=== PATIENT | male | born 1955 | race Caucasian/White ===

== ENCOUNTER 2022-11-16 10:25 | Outpatient (REF) | payer MEDICAID, SELFPAY ==
[2022-11-16 12:33] LABS: Anion Gap 16 (12-20); Blood Urea Nitrogen 26 mg/dL (9-16); Calcium 9.7 mg/dL (8.4-10.2); Carbon Dioxide 23 mmol/L (22-29); Chloride 102 mmol/L (96-108); Estimated Glomerular Filt Rate > 60; Glucose Random 253 mg/dL (60-115); Potassium 3.9 mmol/L (3.3-5.1); Sodium 137 mmol/L (135-145); TSH reflex Free T4 1.49 uIU/mL (0.32-4.0)
== END 2022-11-16 10:26 | disposition home or self-care (01) ==
LOC: HO.HHCL 10:25
PROVIDERS: Visit Provider Internal Medicine
DX: E11.9 Type 2 diabetes mellitus without complications (principal)
CPT/HCPCS: 36415; 80048; 84443

== ENCOUNTER 2023-07-18 11:10 | Outpatient (REF) | payer MEDICARE, MEDICAID, SELFPAY ==
[2023-07-18 14:07] LABS: Cholesterol 106 mg/dL (<200); HDL Cholesterol 46 mg/dL (>40); LDL Cholesterol Calculated 41 mg/dL (<100); Triglycerides 96 mg/dL (<150)
[2023-07-18 14:10] LABS: Creatinine Urine 129.49 mg/dL; Microalbum/Creatinine Ratio Ur 7.7 ug/mg cr (<30)
[2023-07-19 08:14] LABS: ~HepC Num1 0.13 S/CO (0.00-0.79); ~Hepatitis C Antibody Nonreactive (Nonreactive)
== END 2023-07-18 11:11 | disposition home or self-care (01) ==
LOC: HO.HHCL 11:10
PROVIDERS: Visit Provider General Practice
DX: E11.42 Type 2 diabetes mellitus with diabetic polyneuropathy (principal)
CPT/HCPCS: 36415; 80061; 82043; 82570; 86803

== ENCOUNTER 2024-07-30 09:35 | Outpatient (REF) | payer MEDICARE, MEDICAID, SELFPAY ==
--- OUTSIDE RECORDS SUMMARY | 2024-07-30 10:40 | XMS_ITS | Encounter Summary ---
Author Organization [employer] Address 75 [facility] 7t [place] [address] Care Team Providers Care Volunteer Services Specialist Name Role Phone Amada Hwang MD Primary Care Provider [phone] Daniela Chavez PharmD Unavailable [phone] Reason for Visit * Reason Comments Med Refill Encounter Details Date Type Department Care Team (Late st Contact Info) Description 04/14/2023 Refill [facility] MEDICINE [address] [place], [place] [phone] Santa Kay MD 230 [place], [place] [phone] Type 2 diabetes mellitus without complication, without long-term current use of insulin ([facility]) Social History Tobacco Use Types Packs/Day Years Used Date Smoking Tobacco: Never Smokeless Tobacco: Never Alcohol Use Standard Drinks/Week Comments Never 0 (1 standard drink = 0.6 oz pur e alcohol) Housing Stability Answer Date Recorded What is your housing situation today? I have fani montiel 02/16/[address] you li ve. Do you have problems with any of the following? None of the above 02/16/2023 Food Insecurity Answer Date Recorded Within the past 12 months, y ou worried that your food would run out before you got money to buy more: Never True 02/16/2023 Within the past 12 months,th e food you bought just didn't last and you didn't have enough money to get more: Never True 12/2022 Transportation Answer Date Recorded In the past 12 months, has l ack of transportation kept you from medical appts, meetings, work or from getting things needed for daily living? Yes, it has kept me from medical appointments or getting medications. 01/19/2023 Utilities Answer Date Recorded In the past 12 months, has t he electric, gas, oil or water company threatened to shut off services in your home? No 02/16/2023 Depression Answer Date Recorded Patient Health Questionnaire-2 Score 0 06/29/2022 Sex and Gender Information Value Date Recorded Sex Assigned at Male 02/07/2022 10:16 AM EDT Legal Sex Male 10:16 AM EDT Gender Identity Male 02/07/2022 10:16 AM EDT Sexual Orientation Straight 02/07/2022 10 :16 AM EDT documented as of this encounter Plan of Treatment Upcoming Encounters Date Type Department Care Team (Late st Contact Info) Description 07/30/2024 1:30 PM EDT Medication Management [facility] MEDICINE [address] [place] [address] 08/22/2024 1:00 PM EDT Medication Management [facility] MEDICINE [address] [place] [address] Daniela Chavez PharmD 230 [place] [address] 11/12/2024 1:00 PM EDT Office Visit [facility] OPTOMETRY [address] [place] [address] Cheikh, Rosanna, OD 230 [place] [address] documented as of this encounter Visit Diagnoses Diagnosis Type 2 diabetes mellitus without complication, without long-term current use of insulin ([facility]) documented in this encounter Care Teams Volunteer Services Specialist Relationship Specialty Start Date End Date Amada Hwang MD [address] [place] [address] PCP - General Family Medicine 06/09/22 Daniela Chavez PharmD [address] [place] [address] Pharmacist Internal Medicine 08/03/23 documented as of this encounter
--- OUTSIDE RECORDS SUMMARY | 2024-07-30 10:40 | XMS_ITS | Encounter Summary ---
Author Organization [employer] Address 75 [facility] 7t [place] [address] Care Team Providers Care Pbx Installer Name Role Phone KelliPing BRANDON Primary Care Provider Amada Albert MD Primary Care Provider [phone] Daniela Chavez PharmD Unavailable [phone] Encounter Details Date Type Department Care Team (Late st Contact Info) Description 04/29/2022 Orders Only [facility] MEDICINE [address] [place] [address] [phone] Jeanine Monson LPN Social History Tobacco Use Types Packs/Day Years Used Date Smoking Tobacco: Never Assessed Sex and Gender Information Value Date Recorded Sex Assigned at Male 02/07/2022 10:16 AM EDT Legal Sex Male 10:16 AM EDT Gender Identity Male 02/07/2022 10:16 AM EDT Sexual Orientation Straight 02/07/2022 10 :16 AM EDT COVID-19 Exposure Response Date Recorded In the last 10 days, have yo u been in contact with someone who was confirmed or suspected to have Coronavirus/COVID-19? Unable to assess 03/31/2022 1: 04 PM EST documented as of this encounter Plan of Treatment Upcoming Encounters Date Type Department Care Team (Late st Contact Info) Description 07/30/2024 1:30 PM EDT Medication Management [facility] MEDICINE [address] [place] [address] [phone] 08/22/2024 1:00 PM EDT Medication Management [facility] MEDICINE [address] [place] [address] [phone] PuiaCampbellDaniela, PharmD 230 [place], [place] [phone] 11/12/2024 1:00 PM EDT Office Visit [facility] OPTOMETRY [address] [place] [address] Rosanna Salamanca, OD 230 [place] [address] documented as of this encounter Visit Diagnoses Not on filedocumented in this encounter Care Teams Pbx Installer Relationship Specialty Start Date End Date Ping Pereira FNP PCP - General Family Medicine 03/31/22 06/08/22 Amada Hwang MD 230 [place] [address] PCP - General Family Medicine 06/09/22 Daniela Chavez PharmD 230 [place] [address] Pharmacist Internal Medicine 08/03/23 documented as of this encounter
--- OUTSIDE RECORDS SUMMARY | 2024-07-30 10:40 | XMS_ITS | Encounter Summary ---
Author Organization [employer] Address 75 [facility] 7t [place] [address] Care Team Providers Care Powder Hand Name Role Phone Amada Hwang MD Primary Care Provider [phone] Daniela Chavez PharmD Unavailable [phone] Reason for Visit * Reason Comments Med Refill Encounter Details Date Type Department Care Team (Late st Contact Info) Description 02/26/2024 Refill [facility] MEDICINE 230 [place], [place] [phone] Amada Hwang MD 230 [place], [place] [phone] Type 2 diabetes mellitus with hyperglycemia, with long-term current use of insulin ([facility]) Social History Tobacco Use Types Packs/Day Years Used Date Smoking Tobacco: Never Smokeless Tobacco: Never Alcohol Use Standard Drinks/Week Comments Never 0 (1 standard drink = 0.6 oz pur e alcohol) Depression Answer Date Recorded Patient Health Questionnaire-9 Score 0 07/10/2023 Patient Health Questionnaire-9 Score 0 07/10/2023 Last PHQ-9: Questionnaire Data Not on file 0 07/10/2023 Housing Stability Answer Date Recorded What is your housing situation today? I have fani montiel 07/10/[address] you li ve. Do you have problems with any of the following? None of the above 07/10/2023 Food Insecurity Answer Date Recorded Within the past 12 months, y ou worried that your food would run out before you got money to buy more: Never True 07/10/2023 Within the past 12 months,th e food you bought just didn't last and you didn't have enough money to get more: Never True 04/2023 Transportation Answer Date Recorded In the past 12 months, has l ack of transportation kept you from medical appts, meetings, work or from getting things needed for daily living? Yes, it has kept me from medical appointments or getting medications. 07/10/2023 Utilities Answer Date Recorded In the past 12 months, has t he electric, gas, oil or water company threatened to shut off services in your home? No 07/10/2023 Depression Answer Date Recorded Patient Health Questionnaire-2 Score 0 07/10/2023 Sex and Gender Information Value Date Recorded Sex Assigned at Male 02/07/2022 10:16 AM EDT Legal Sex Male 10:16 AM EDT Gender Identity Male 02/07/2022 10:16 AM EDT Sexual Orientation Straight 02/07/2022 10 :16 AM EDT documented as of this encounter Plan of Treatment Upcoming Encounters Date Type Department Care Team (Late st Contact Info) Description 07/30/2024 1:30 PM EDT Medication Management [facility] MEDICINE [address] [place] [address] 08/22/2024 1:00 PM EDT Medication Management [facility] MEDICINE [address] [place] [address] Daniela Chavez PharmD 230 [place] [address] 11/12/2024 1:00 PM EDT Office Visit [facility] OPTOMETRY [address] [place] [address] Cheikh, Rosanna, OD 230 [place] [address] documented as of this encounter Goals Goal Patient Goal Type Associated Problems Recent Progress Patient-Stated? Author Hemoglobin A1c < 7 Result Component 8.4( 11:02 AM EST) No Daniela Chavez PharmLiya Record your blood sugar as directed Result Component No Daniela Chavez PharmD Note: Use CGM, ensuring sensor is scanned at least once every 8 hours to capture 24H data. Check BG manually, as directed. documented as of this encounter Visit Diagnoses Diagnosis Type 2 diabetes mellitus with hyperglycemia, with long-term current use of insulin ([facility]) documented in this encounter Additional Health Concerns Assessment Noted Time PHQ-9 Depression Total Score: 0 07/10/19 24 11:10 AM EDT documented as of this encounter Care Teams Powder Hand Relationship Specialty Start Date End Date Amada Hwang MD 230 [place] [address] PCP - General Family Medicine 06/09/22 Daniela Chavez PharmD [address] [place] [address] Pharmacist Internal Medicine 08/03/23 documented as of this encounter
--- OUTSIDE RECORDS SUMMARY | 2024-07-30 10:40 | XMS_ITS | Encounter Summary ---
Author Organization [employer] Address 75 [facility] 7t [place] [address] Care Team Providers Care Transplant Surgeon Name Role Phone Amada Hwang MD Primary Care Provider [phone] Daniela Chavez PharmD Unavailable [phone] Reason for Visit * Reason Comments Med Refill Encounter Details Date Type Department Care Team (Late st Contact Info) Description 03/23/2023 Refill [facility] MEDICINE 230 [place], [place] [phone] Santa Kay MD 230 [place], [place] [phone] Type 2 diabetes mellitus without complication, without long-term current use of insulin ([facility]) Social History Tobacco Use Types Packs/Day Years Used Date Smoking Tobacco: Never Smokeless Tobacco: Never Alcohol Use Standard Drinks/Week Comments Never 0 (1 standard drink = 0.6 oz pur e alcohol) Housing Stability Answer Date Recorded What is your housing situation today? I have faninatasha montiel 02/16/[address] you [...] Description 07/30/2024 1:30 PM EDT Medication Management [facility] MEDICINE [address] [place] [address] 08/22/2024 1:00 PM EDT Medication Management [facility] MEDICINE [address] [place] [address] Daniela Chavez PharmD [address] [place] [address] 11/12/2024 1:00 PM EDT Office Visit [facility] OPTOMETRY [address] [place] [address] Cheikh, Rosanna, OD 230 [place] [address] documented as of this encounter Visit Diagnoses Diagnosis Type 2 diabetes mellitus without complication, without long-term current use of insulin ([facility]) documented in this encounter Care Teams Transplant Surgeon Relationship Specialty Start Date End Date Amada Hwang MD [address] [place] [address] PCP - General Family Medicine 06/09/22 Daniela Chavez PharmD [address] [place] [address] Pharmacist Internal Medicine 08/03/23 documented as of this encounter
--- OUTSIDE RECORDS SUMMARY | 2024-07-30 10:40 | XMS_ITS | Encounter Summary ---
Author Organization [employer] Address 75 [facility] 7t [place] [address] Care Team Providers Care Attic Fans Mechanic Name Role Phone Amada Hwang MD Primary Care Provider [phone] Daniela Chavez PharmD Unavailable [phone] Reason for Visit * Reason Comments Med Refill Encounter Details Date Type Department Care Team (Late st Contact Info) Description 12/19/2023 Refill [facility] MEDICINE 230 [place], [place] [phone] Amada Hwang MD 230 [place], [place] [phone] Type 2 diabetes mellitus with hyperglycemia, with long-term current use of insulin ([facility]) Social History Tobacco Use Types [...] Description 07/30/2024 1:30 PM EDT Medication Management [facility] MEDICINE [address] [place] [address] 08/22/2024 1:00 PM EDT Medication Management [facility] MEDICINE [address] [place] [address] Daniela Chavez PharmD [address] [place] [address] 11/12/2024 1:00 PM EDT Office Visit [facility] OPTOMETRY [address] [place] [address] Cheikh, Rosanna, OD [address] [place] [address] documented as of this encounter Goals Goal [...] hyperglycemia, with long-term current use of insulin ([facility]) documented in this encounter Additional Health Concerns Assessment Noted Time PHQ-9 Depression Total Score: 0 07/10/19 24 11:10 AM EDT documented as of this encounter Care Teams Attic Fans Mechanic Relationship Specialty Start Date End Date Amada Hwang MD 230 [place] [address] PCP - General Family Medicine 06/09/22 Daniela Chavez PharmD 230 [place] [address] Pharmacist Internal Medicine 08/03/23 documented as of this encounter
--- OUTSIDE RECORDS SUMMARY | 2024-07-30 10:40 | XMS_ITS | Encounter Summary ---
Author Organization [employer] Address 75 [facility] 7t [place] [address] Care Team Providers Care Nursing Education Consultant Name Role Phone Amada Hwang MD Primary Care Provider [phone] Daniela Chavez PharmD Unavailable [phone] Reason for Referral * Consultation (Routine) - Authorized Specialty Diagnoses / Procedures Referred By Contac t Referred To Contact Pharmacy Diagnoses Type 2 diabetes mellitus with hyperglycemia, with long-term current use of insulin (CMS/HCC) Amada Hwang MD [address] [place] [address] Phone: tel: fax: Referral ID Status Reason Start Date Expiration Date Visits Requested Visits Authorized [id number] Authorized Consult and Treat 03/05/2024 03/05/2025 6 6 Encounter Details Date Type Department Care Team (Late st Contact Info) Description 03/05/2024 Orders Only [facility] MEDICINE [address] [place], [place] [phone] Amada Hwang MD [address] [place], [place] [phone] Type 2 diabetes mellitus with hyperglycemia, with long-term current use of insulin (CMS/HCC) (Primary Dx) Social History Tobacco Use Types Packs/Day Years [...] Description 07/30/2024 1:30 PM EDT Medication Management [facility] MEDICINE [address] [place] [address] 08/22/2024 1:00 PM EDT Medication Management [facility] MEDICINE [address] [place] [address] Daniela Chavez, KinD [address] [place] [address] 11/12/2024 1:00 PM EDT Office Visit [facility] OPTOMETRY [address] [place] [address] Rosanna Salamanca, OD 230 [place] [address] Scheduled Referrals Name Type Priority Associated Diagnoses Orde r Schedule Referral to Pharmacy CDTM Outpatient Referral Routine Type 2 diabetes mellitus with hyperglycemia, with long-term current use of insulin ([facility]) Ordered: 03/05/2024 documented as of this encounter Goals Goal Patient Goal Type Associated Problems Recent Progress Patient-Stated? Author Hemoglobin A1c < 7 Result Component 8.4( 11:02 AM EST) No Daniela Chavez, [employer] Record your blood sugar as directed Result Component No Daniela Chavez PharmD Note: Use CGM, ensuring sensor is scanned at least once every 8 hours to capture 24H data. Check BG manually, as directed. documented as of this encounter Visit Diagnoses Diagnosis Type 2 diabetes mellitus with hyperglycemia, with long-term current use of insulin ([facility])- Primary documented in this encounter Additional Health Concerns Assessment Noted Time PHQ-9 Depression Total Score: 0 07/10/19 24 11:10 AM EDT documented as of this encounter Care Teams Nursing Education Consultant Relationship Specialty Start Date End Date Amada Hwang MD [address] [place] [address] PCP - General Family Medicine 06/09/22 Daniela Chavez PharmD [address] [place] [address] Pharmacist Internal Medicine 08/03/23 documented as of this encounter
--- OUTSIDE RECORDS SUMMARY | 2024-07-30 10:40 | XMS_ITS | Encounter Summary ---
Author Organization [employer] Address 75 [facility] 7t [place] [address] Care Team Providers Care Scallop Raker Name Role Phone Amada Hwang MD Primary Care Provider [phone] Daniela Chavez PharmD Unavailable [phone] Reason for Visit * Reason Comments Med Refill Encounter Details Date Type Department Care Team (Late st Contact Info) Description 07/03/2024 Refill [facility] MEDICINE [address] [place], [place] [phone] Amada Hwang MD [address] [place], [place] [phone] Social History Tobacco Use Types Packs/Day Years Used Date Smoking Tobacco: Never Smokeless Tobacco: Never Alcohol Use Standard Drinks/Week Comments Never 0 (1 standard drink = 0.6 oz pur e alcohol) Alcohol Answer Date Recorded How often do you have a drink containing alcohol ? 1 06/14/2024 How many drinks containing a lcohol do you have on a typical day when you are drinking? 1 06/14/2024 How often do you have six or more drinks on one occasion? 0 06/14/2024 Depression Answer Date Recorded Patient Health Questionnaire-9 [...] from getting things needed for daily living? No 05/30/2024 Utilities Answer Date Recorded In the past 12 months, has t he [employer], gas, oil or water company threatened to shut off services in your home? No 07/10/2023 Depression Answer Date Recorded Patient Health Questionnaire-2 Score 0 07/10/2023 Internet Access Answer Date Recorded Internet Access Q1 Yes 05/30/2024 Internet Access Q2 Not on file 05/30/2024 Sex and Gender Information Value Date Recorded Sex Assigned at Male 02/07/2022 10:16 AM EDT Legal Sex Male 10:16 AM EDT Gender Identity Male 02/07/2022 10:16 AM EDT Sexual Orientation Straight 02/07/2022 10 :16 AM EDT documented as of this encounter Plan of Treatment Upcoming Encounters Date Type Department Care Team (Late st Contact Info) Description 07/30/2024 1:30 PM EDT Medication Management [facility] MEDICINE [address] [place] [address] 08/22/2024 1:00 PM EDT Medication Management [facility] MEDICINE [address] [place] [address] Daniela Chavez PharmD [address] [place] [address] 11/12/2024 1:00 PM EDT Office Visit [facility] OPTOMETRY [address] [place] [address] Rosanna Salamanca, OD [address] [place] [address] documented as of this encounter Goals Goal Patient Goal Type Associated Problems Recent Progress Patient-Stated? Author Hemoglobin A1c < 7 Result Component 8.4( 11:02 AM EST) No Puia, Daniela, PharmD Record your blood sugar as directed Result Component No Daniela Chavez PharmD Note: Use CGM, ensuring sensor is scanned at least once every 8 hours to capture 24H data. Check BG manually, as directed. documented as of this encounter Visit Diagnoses Not on filedocumented in this encounter Additional Health Concerns Assessment Noted Time PHQ-9 Depression Total Score: 0 07/10/19 24 11:10 AM EDT documented as of this encounter Care Teams Scallop Raker Relationship Specialty Start Date End Date Amada Hwang MD [address] [place] [address] PCP - General Family Medicine 06/09/22 Daniela Chavez PharmD [address] [place] [address] Pharmacist Internal Medicine 08/03/23 documented as of this encounter
--- OUTSIDE RECORDS SUMMARY | 2024-07-30 10:40 | XMS_ITS | Encounter Summary ---
Author Organization [employer] Address 75 [facility] 7t [place] [address] Care Team Providers Care Speeder Hand Name Role Phone Amada Hwang MD Primary Care Provider [phone] Daniela Chavez PharmD Unavailable [phone] Reason for Visit * Reason Comments Med Refill Encounter Details Date Type Department Care Team (Late st Contact Info) Description 03/19/2024 Refill [facility] MEDICINE 230 [place], [place] [phone] Amada Hwang MD 230 [place], [place] [phone] Rash; Type 2 diabetes mellitus with hyperglycemia, with long-term current use of insulin ([facility]) Social History Tobacco Use Types [...] PM EDT Medication Management [facility] MEDICINE [address] [place] [address] 08/22/2024 1:00 PM EDT Medication Management [facility] MEDICINE [address] [place] [address] Daniela Chavez PharmD [address] [place] [address] 11/12/2024 1:00 PM EDT Office Visit [facility] OPTOMETRY [address] [place] [address] Cheikh, Rosanna, OD 230 [place] [address] documented as of this encounter Goals Goal [...] as of this encounter Visit Diagnoses Diagnosis Rash Rash and other nonspecific skin eruption Type 2 diabetes mellitus with hyperglycemia, with long-term current use of insulin ([facility]) documented in this encounter Additional Health Concerns Assessment Noted Time PHQ-9 Depression Total Score: 0 07/10/19 24 11:10 AM EDT documented as of this encounter Care Teams Speeder Hand Relationship Specialty Start Date End Date Amada Hwang MD [address] [place] [address] PCP - General Family Medicine 06/09/22 Daniela Chavez PharmD [address] [place] [address] Pharmacist Internal Medicine 08/03/23 documented as of this encounter
--- OUTSIDE RECORDS SUMMARY | 2024-07-30 10:40 | XMS_ITS | Encounter Summary ---
Author Organization [employer] [facility] [employer] Address 75 [facility] 7t [place] [address] Care Team Providers Care Rubber Liner Name Role Phone Amada Hwang MD Primary Care Provider [phone] Daniela Chavez PharmD Unavailable [phone] Reason for Visit * Reason Comments Med Refill Encounter Details Date Type Department Care Team (Late st Contact Info) Description 05/07/[address] [facility] MEDICINE 230 [place], [place] [phone] Santa Kay MD 230 [place], [place] [phone] Type 2 diabetes mellitus without complication, without long-term current use of insulin ([facility]) Social History Tobacco Use Types [...] Description 07/30/2024 1:30 PM EDT Medication Management [facility] MEDICINE [address] [place] [address] 08/22/2024 1:00 PM EDT Medication Management [facility] MEDICINE [address] [place] [address] Daniela Chavez PharmD [address] [place] [address] 11/12/2024 1:00 PM EDT Office Visit [facility] OPTOMETRY [address] [place] [address] Cheikh, Rosanna, OD [address] [place] [address] documented as of this encounter Visit Diagnoses Diagnosis Type 2 diabetes mellitus without complication, without long-term current use of insulin ([facility]) documented in this encounter Care Teams Rubber Liner Relationship Specialty Start Date End Date Amada Hwang MD [address] [place] [address] PCP - General Family Medicine 06/09/22 Daniela Chavez PharmD [address] [place] [address] Pharmacist Internal Medicine 08/03/23 documented as of this encounter
--- OUTSIDE RECORDS SUMMARY | 2024-07-30 10:40 | XMS_ITS | Encounter Summary ---
Author Organization [employer] Address [address] [facility] [address] [place] [address] Care Team Providers Care Inspector Subassembly Name Role Phone Amada Hwang MD Primary Care Provider [phone] Daniela Chavez PharmD Unavailable [phone] Encounter Details Date Type Department Care Team (Late st Contact Info) Description 08/04/2023 Orders Only [facility] MEDICINE [address] [place], [place] [phone] Amada Hwang MD [address] [place], [place] [phone] Social History Tobacco Use Types Packs/Day Years [...] Description 07/30/2024 1:30 PM EDT Medication Management [facility] MED[facility]INE [address] [place] [address] 08/22/2024 1:00 PM EDT Medication Management [facility] MEDICINE [address] [place] [address] Daniela Chavez, PharmD [address] [place] [address] 11/12/2024 1:00 PM EDT Office Visit [facility] OPTOMETRY [address] [place] [address] Cheikh, Rosanna, OD [address] [place] [address] documented as of this encounter Goals Goal Patient Goal Type Associated Problems Recent Progress Patient-Stated? Author Hemoglobin A1c < 7 Result Component 8.4( 5 11:02 AM EST) No Daniela Chavez, PharmD Record your blood sugar as directed Result Component No Daniela Chavez, PharmD Note: Use CGM, ensuring sensor is scanned at least once every 8 hours to capture 24H data. Check BG manually, as directed. documented as of this encounter Visit Diagnoses Not on filedocumented in this encounter Additional Health Concerns Assessment Noted Time PHQ-9 Depression Total Score: 0 07/10/19 11:10 AM EDT documented as of this encounter Care Teams Inspector Subassembly Relationship Specialty Start Date End Date Amada Hwang MD [address] [place], [place] [phone] PCP - General Family Medicine 06/09/22 Daniela Chavez PharmD [address] [place] [address] Pharmacist Internal Medicine 08/03/23 documented as of this encounter
--- OUTSIDE RECORDS SUMMARY | 2024-07-30 10:40 | XMS_ITS | Encounter Summary ---
Author Organization [employer] Address [address] [facility] [address] [place] [address] Care Team Providers Care [employer] Wafers Etch Operator Name Role Phone Amada Hwang MD Primary Care Provider [phone] Daniela Chavez PharmD Unavailable [phone] Reason for Visit * Reason Comments Med Refill Encounter Details Date Type Department Care Team (Late st Contact Info) Description 11/02/2023 Refill [facility] [address] [place], [place] [phone] Amada Hwang MD [address] [place], [place] [phone] Social History Tobacco Use Types Packs/Day Years [...] Description 07/30/2024 1:30 PM EDT Medication Management [facility] [address] [place] [address] 08/22/2024 1:00 PM EDT Medication Management [facility] [address] [place] [address] Daniela Chavez, PharmD [address] [place] [address] 11/12/2024 1:00 PM EDT Office Visit [facility] [address] [place] [address] Cheikh, Rosanna, OD [address] [place] [address] documented as of this encounter Goals Goal Patient Goal Type Associated Problems Recent Progress Patient-Stated? Author Hemoglobin A1c < 7 Result Component 8.4( 5 11:02 AM EST) No Daniela Chavez, PharmD Record your blood sugar as directed Result Component No [facility] [place], PharmD Note: Use CGM, ensuring sensor is scanned at least once every 8 hours to capture 24H data. Check BG manually, as directed. documented as of this encounter Visit Diagnoses Not on filedocumented in this encounter Additional Health Concerns Assessment Noted Time PHQ-9 Depression Total Score: 0 07/10/19 24 11:10 AM EDT documented as of this encounter Care Teams [employer] Wafers Etch Operator Relationship Specialty Start Date End Date Amada Hwang MD [address] [place] [address] PCP - General Family Medicine 06/09/22 Daniela Chavez PharmD [address] [place] [address] Pharmacist Internal Medicine 08/03/23 documented as of this encounter
--- OUTSIDE RECORDS SUMMARY | 2024-07-30 10:40 | XMS_ITS | Encounter Summary ---
Author Organization [employer] Address [address] [facility] [address] [place] [address] Care Team Providers Care Masking Machine Operator Name Role Phone Amada Hwang MD Primary Care Provider [phone] Daniela Chavez PharmD Unavailable [phone] Reason for Visit * Reason Comments Med Refill Encounter Details Date Type Department Care Team (Late st Contact Info) Description 07/03/2024 Refill [facility] [address] [place], [place] [phone] [facility] [address] [place], [place] [phone] Social History Tobacco Use Types Packs/Day Years [...] the past 12 months, has t he [employer], oil or water company threatened to [...] Description 07/30/2024 1:30 PM EDT Medication Management [facility] [address] [place] [address] 08/22/2024 1:00 PM EDT Medication Management [facility] [address] [place] [address] Daniela Chavez PharmD [address] [place] [address] 11/12/2024 1:00 PM EDT Office Visit [facility] OPTOMETRY [address] [place] [address] Rosanna [place]amanca, OD [address] [place] [address] documented as of this encounter Goals Goal Patient Goal Type Associated Problems Recent Progress Patient-Stated? Author Hemoglobin A1c < 7 Result Component 8.4( 11:02 AM EST) No Daniela Chavez PharmD Record your blood sugar as directed [...] documented as of this encounter Care Teams Masking Machine Operator Relationship Specialty Start Date End Date Amada Hwang MD [address] [place] [address] PCP - General Family Medicine 06/09/22 Daniela Chavez PharmD [address] [place] [address] Pharmacist Internal Medicine 08/03/23 documented as of this encounter
--- OUTSIDE RECORDS SUMMARY | 2024-07-30 10:40 | XMS_ITS | Clinical Summary ---
Author Organization [employer] Address [address] [place] [address] Care Team Providers Care Jewel Bearing Driller Name Role Phone Amada Hwang MD Primary Care Provider Daniela Chavez PharmD Unavailable [phone] Allergies No known active allergies Medications amitriptyline (Elavil) 25 MG tablet Take 25 mg by mouth at bedtime. 06/03/19 23 Active traZODone (Desyrel) 150 MG tablet TAKE 1 TABLET BY MOUTH EVERYDAY AT BEDTIME (FILLED ELSEWHERE) 06/03/19 23 Active amitriptyline (Elavil) 10 MG tablet TAKE 1 TABLET BY MOUTH AT BEDTIME TAKE WITH AMITRIPTYLINE 25 MG TO MAKE A TOTAL DOSE OF 35 MG 07/14/19 24 Active Continuous Glucose Corridor Redevelopment Manager (FreeStyle Paulino 2 [place]) deviceIndication s:Type 2 diabetes mellitus with hyperglycemia, with long-term current use of insulin ([facility]) Scan sensor every 8 hours 1 each 09/08/19 24 Active pen needle 32G x 4 mm miscIndications: Type 2 diabetes mellitus with hyperglycemia, with long-term current use of insulin ([facility]) USE WITH INSULIN ONCE DAILY 100 each 3 11/08/19 24 025 Active glucose blood (FreeStyle Precision Felipe Test) test stripIndications :Type 2 diabetes mellitus with hyperglycemia, with long-term current use of insulin ([facility]) Use to test blood sugar up to 3 times daily, as directed 100 each 11 11/08/19 24 Active Lancets Misc. kitIndications:T ype 2 diabetes mellitus with hyperglycemia, with long-term current use of insulin ([facility]) Use to test blood sugar up to three times daily, as directed 100 kit 11 11/08/19 24 Active insulin lispro (HumaLOG KWIKPEN) 100 UNIT/ML injection Inject 8 Units under the skin with breakfast, with lunch, and with evening meal. 15 mL 3 12/08/19 24 Active witch codey-glycerin (Tucks) padIndications:R esidual hemorrhoidal skin tags Apply topically if needed for irritation. 100 each 3 12/08/19 24 Active ibuprofen 600 MG tablet TAKE 1 TABLET BY MOUTH THREE TIMES A DAY WITH FOOD NEEDED 60 tablet 5 01/08/20 24 Active aspirin (Aspirin Low Dose) 81 MG chewable tabletIndication s:Type 2 diabetes mellitus with hyperglycemia, with long-term current use of insulin ([facility]) CHEW 1 TABLET (81 MG) IN THE MORNING 90 tablet 3 01/24/20 24 Active atorvastatin (Lipitor) 40 MG tabletIndication s:Type 2 diabetes mellitus with hyperglycemia, with long-term current use of insulin ([facility]) TAKE 1 TABLET BY MOUTH EVERY DAY IN THE MORNING 90 tablet 3 01/24/20 24 Active hydrocortisone 2.5 % creamIndications :Rash APPLY THIN COAT TO AFFECTED AREA TWICE A DAY 28 g 1 03/20/20 24 Active fluticasone (Flonase) 50 MCG/ACT nasal spray SPRAY 1 - 2 SPRAY BY INTRANASAL ROUTE EVERY DAY IN EACH NOSTRIL NEEDED 48 mL 05/03/19 25 Active insulin glargine (Lantus SoloStar) 100 UNIT/ML pen INJECT 34 UNITS UNDER THE SKIN AT BEDTIME. 15 mL 3 06/05/19 25 Active glimepiride (Amaryl) 4 MG tabletIndication s:Type 2 diabetes mellitus with hyperglycemia, with long-term current use of insulin ([facility]) Take 1 tablet (4 mg) by mouth before breakfast. 90 tablet 06/05/19 25 Active cholecalciferol (Vitamin D-3) 25 MCG (1000 UT) tablet Take 1 tablet (25 mcg) by mouth Once per day. 90 tablet 3 06/12/19 25 Active albuterol 108 (90 Base) MCG/ACT inhalerIndicatio ns:Asthma, unspecified asthma severity, unspecified whether complicated, unspecified whether persistent Inhale 2 puffs every 4 (four) hours if needed for wheezing or shortness of breath. 18 g 11 06/12/19 25 Active Continuous Glucose Sensor (FreeStyle Paulino 2 Plus Sensor) misc 1 each every 8 (eight) hours. Apply 1 sensor every 15 days as directed for CGM. Continue to scan Q8H, at minimum, to capture 24 hr BG data. 2 each 07/19/19 25 Active SITagliptin-metF ORMIN ER (Janumet XR) 50-1000 MG per 24 hr tablet Take 1 tablet by mouth with breakfast and with evening meal. 180 tablet 3 07/19/19 25 026 Active Continuous Glucose Sensor (FreeStyle Paulino 2 Sensor) miscIndications: Type 2 diabetes mellitus with hyperglycemia, with long-term current use of insulin ([facility]) APPLY 1 SENSOR EVERY 14 DAYS 2 each 09/08/19 24 025 Discontinu ed(Alterna te therapy) metFORMIN XR (Glucophage-XR) 500 MG 24 hr tabletIndication s:Type 2 diabetes mellitus with hyperglycemia, with long-term current use of insulin ([facility]) TAKE 2 TABLETS (1,000 MG) BY MOUTH WITH BREAKFAST AND WITH EVENING MEAL. DO NOT CRUSH, CHEW, OR SPLIT. 360 tablet 04/22/19 25 025 Discontinu ed(Alterna te therapy) clotrimazole (Lotrimin) 1 % cream Apply topically 2 times daily for 28 days. 30 g 5 06/12/19 25 025 Continuous Glucose Sensor (FreeStyle Paulino 2 Plus Sensor) misc 1 each every 8 (eight) hours. Apply 1 sensor every 15 days as directed for CGM. Continue to scan Q8H, at minimum, to capture 24 hr BG data. 2 each 07/19/19 25 025 Discontinu ed(Entered in error) Active Problems Problem Noted Date Diagnosed Date Syncope 07/18/2023 Assessment & Plan (07/18/2023 2:09 PM EDT): - most likely related to orthostatic hypertension at night vs trazodone vs POTS? - no evidence of orthostatism today - counseled regarded increased fluid and salt intake, check BP and BS at home at bedtime in addtiion to regular testing. -Order tilt table test to ro orthostatism. -I will order a bedside commode to avoid further accidents overnight Overweight (BMI 25.0-29.9) 05/24/2023 Type 2 diabetes mellitus wit h hyperglycemia, with long-term current use of insulin 11/16/2022 Assessment & Plan (06/14/2024 8:11 AM EST): A1C 8.4 Taking Lantus 32units, Glimepiride 4mg, Metformin 1500mg daily, Humalog 8 units with meals , Ozempic 0.25mg BMP: Lab Results Component Value Date CREATININE 1.09 11/16/2022 CREATININE 1.09 06/29/2022 Microalbumin: ordered today Foot Exam: normal today Eye Exam: had this in 09/2022 Lipid panel: Lab Results Component Value Date LDLCHOL 113 (H) 06/29/2022 ASCVD: > 10% Statin: Yes ASA: Yes LASHELL/ARB: No, BP is low Encouraged regular aerobic exercise for improved glycemic control Encouraged daily foot checks Encouraged lean protein snacks and to avoid foods high in sugar and simple carbohydrates Treatment Goals: A1c goal: <7% FBG goal: <130 2 hour post prandial goal: <180 Assessment & Plan (12/13/2023 4:51 PM EDT): A1C 9.3 Taking Lantus 32 units nightly, will need to titrate up, Glimepiride 4mg, Metformin 1500mg daily, Humalog 8 units with meals BMP: Lab Results Component Value Date CREATININE 1.09 11/16/2022 Microalbumin: ordered today Foot Exam: ABNORMAL Eye Exam: he thinks he had this in 09/2022 Lipid panel: Lab Results Component Value Date LDLCHOL 113 (H) 06/29/2022 ASCVD: > 10% Statin: Yes ASA: Yes LASHELL/ARB: No, BP is low Encouraged regular aerobic exercise for improved glycemic control Encouraged daily foot checks Encouraged lean protein snacks and to avoid foods high in sugar and simple carbohydrates Treatment Goals: A1c goal: <7% FBG goal: <130 2 hour post prandial goal: <180 Assessment & Plan (07/18/2023 12:37 PM EDT): - uncontrolled, f/u with PCP - had lengthy discussion with pt and GOLF CART MECHANIC, noted importance of calorie count, avoiding high carb meals - no change in medications - f/u CDTM program and with pcp Assessment & Plan (07/11/2023 7:37 AM EDT): Current A1c: 11.4, on Metformin 1000mg BID, Glimiperide 4mg, Trulicity 0.75mg weekly, and Lantus 34 units nightly -- I ordered Novolog 6-8 units with meals last time we met in 04/2023, but his GOLF CART MECHANIC says it was not at the pharmacy, she will check again CGM ordered, gave Medicare B form to take to [facility] today to keep PA process moving forward DM2 clinical pharmacy visit 08/03/23 BMP: Lab Results Component Value Date CREATININE 1.11/16/2022 Microalbumin: ordered today Foot Exam: ABNORMAL Eye Exam: he thinks he had this in 09/2022 Lipid panel: Lab Results Component Value Date LDLCHOL 113 (H) 06/29/2022 ASCVD: > 10% Statin: Yes ASA: Yes LASHELL/ARB: No, BP is low Encouraged regular aerobic exercise for improved glycemic control Encouraged daily foot checks Encouraged lean protein snacks and to avoid foods high in sugar and simple carbohydrates Treatment Goals: A1c goal: <7% FBG goal: <130 2 hour post prandial goal: <180 Assessment & Plan (05/24/2023 11:18 AM EST): Current A1c: 11.6, on Metformin 1000mg BID and Glimiperide 4mg Continue Trulicity 0.75mg weekly Increase Lantus to 34 units nightly CGM ordered Referral for DM2 education placed BMP: Lab Results Component Value Date CREATININE 1.11/16/2022 Microalbumin: DUE Foot Exam: ABNORMAL Eye Exam: Discuss at follow up Lipid panel: Lab Results Component Value Date LDLCHOL 113 (H) 06/29/2022 ASCVD: > 10% Statin: Yes ASA: Yes LASHELL/ARB: No, BP is low Encouraged regular aerobic exercise for improved glycemic control Encouraged daily foot checks Encouraged lean protein snacks and to avoid foods high in sugar and simple carbohydrates Treatment Goals: A1c goal: <7% FBG goal: <130 2 hour post prandial goal: <180 Assessment & Plan (04/29/2023 12:14 PM EST): Current A1c: 10.6, on Metformin 1000mg BID and Glimiperide 2mg INCREASE Glimiperide to 4mg daily Increase Lantus to 30 units night STOP Novolog START Trulicity 0.75mg weekly CGM ordered Start DM2 education, referral placed BMP: Lab Results Component Value Date CREATININE 1.11/16/2022 Microalbumin: DUE Foot Exam: ABNORMAL Eye Exam: Discuss at follow up Lipid panel: Lab Results Component Value Date LDLCHOL 113 (H) 06/29/2022 ASCVD: > 10% Statin: STARTED today ASA: STARTED today LASHELL/ARB: No, BP is low Encouraged regular aerobic exercise for improved glycemic control Encouraged daily foot checks Encouraged lean protein snacks and to avoid foods high in sugar and simple carbohydrates Treatment Goals: A1c goal: <7% FBG goal: <130 2 hour post prandial goal: <180 Assessment & Plan (01/11/2023 1:25 PM EDT): Current A1c: 12.1, on Metformin 1000mg BID and Glimiperide Start Lantus 20 units night Start Novolog 6 units with meals Start DM2 education, referral placed BMP: Lab Results Component Value Date CREATININE 1.09 11/16/2022 Microalbumin: DUE Foot Exam: ABNORMAL Eye Exam: Discuss at follow up Lipid panel: Lab Results Component Value Date LDLCHOL 113 (H) 06/29/2022 ASCVD: > 10% Statin: STARTED today ASA: STARTED today LASHELL/ARB: No, BP is low Encouraged regular aerobic exercise for improved glycemic control Encouraged daily foot checks Encouraged lean protein snacks and to avoid foods high in sugar and simple carbohydrates Treatment Goals: A1c goal: <7% FBG goal: <130 2 hour post prandial goal: <180 Assessment & Plan (12/14/2022 10:31 AM EDT): Metformin was increased by his PCP to 1000 mg bid recently, continues with hyperglycemia. We discussed rx options including weekly injectables and PO med. He decided to add oral meds, I will add Glimepiride 2mg/d and continue metformin asa above. FU w PCP on 01/09 I will refer to nutrition. I gave them infor re low carb diet. Assessment & Plan (11/16/2022 10:18 AM EDT): New onset, pt was prediabetic and has strong family history of DM. Counseled re more frequent low calorie/carb meals. Encouraged physical activity as tolerated. I gave him information about caring for DM check fingerstick daily and order labs pt will be holding metformin for now and will call him back after bloodwork result to start medications and fu with me and PCP in 2-3 weeks Nocturia 06/29/2022 Assessment & Plan (06/29/2022 2:29 PM EDT): Check PSA today No FH of prostate cancer Osteoarthritis of foot joint 09/06/2017 Lumbar spondylosis 07/04/2016 Assessment & Plan (06/29/2022 2:28 PM EDT): Continue NSAID prn OTC cream TEENS unit Stretching and activity as much as tolerated Asthma 11/28/2012 Assessment & Plan (06/29/2022 2:27 PM EDT): Not using Advair Continue CARSON prn Avoid triggers Mixed anxiety and depressive disorder 11/28/2012 Assessment & Plan (06/29/2022 2:28 PM EDT): continue with psych prescriber and therapist Resolved Problems Problem Noted Date Diagnosed Date Resolved Date Diabetes mellitus due to und erlying condition with diabetic autonomic neuropathy, with long-term current use of insulin 07/10/2023 024 Encounters Date Type Department Care Team Description 07/18/2024 Travel 07/03/2024 Refill [facility] [address] [place] [address] Denise Willard FNP 07/03/2024 Refill [facility] [address] [place] [address] Amada Hwang MD 06/11/2024 11:00 AM EST Office Visit [facility] [address] [place] [address] Amada Hwang MD Type 2 diabetes mellitus with hyperglycemia, with long-term current use of insulin ([facility]) (Primary Dx); Asthma, unspecified asthma severity, unspecified whether complicated, unspecified whether persistent; Dietary counseling; Exercise counseling; Overweight; Mixed anxiety and depressive disorder; Lumbar spondylosis 06/11/2024 Travel 06/05/2024 Refill [facility] [address] [place] [address] Amada Hwang MD Type 2 diabetes mellitus with hyperglycemia, with long-term current use of insulin ([facility]) 06/05/2024 Refill [facility] [address] [place] [phone] [facility] Type 2 diabetes mellitus with hyperglycemia, with long-term current use of insulin ([facility]) 05/30/2024 Patient Outreach [facility] [address] [place] [phone] Amada Hwang MD Pre-visit Planning (SDOH screening negative and tobacco screening negative) 05/21/2024 Refill [facility] [address] [place] [address] [facility] Type 2 diabetes mellitus with hyperglycemia, with long-term current use of insulin ([facility]) 05/14/2024 Telephone [facility] [address] [place] [phone] Sujata Worthington, RN CCA form 05/03/2024 Refill [facility] [address] [place] [phone] Amada Hwang MD Asthma, unspecified asthma severity, unspecified whether complicated, unspecified whether persistent; Type 2 diabetes mellitus with hyperglycemia, with long-term current use of insulin ([facility]) 05/01/2024 Telephone [facility] [address] [place] [phone] Daniela Chavez, PharmD from Last 3 Months Immunizations Name Administration Dates Next Due Hep B, adult 06/20/2000 Pfizer Covid-19 Vaccine 12+ 09/28/2020, 1 TD (adult), 2 Lf tetanus tox oid, preservative free, adsorbed 11/16/2000 Social History Tobacco Use Types Packs/Day Years Used Date Smoking Tobacco: Never Smokeless Tobacco: Never Tobacco Cessation:Counseling Given: Not Answered Alcohol Use Standard Drinks/Week Comments Never 0 [...] Orientation Straight 02/07/2022 10 :16 AM EDT Last Filed Vital Signs Vital Sign Reading Time Taken Comments Blood Pressure 124/70 06/11/2024 11:02 AM EST Pulse 77 06/11/2024 11:02 AM EST Temperature 36.7 ??C (98.1 ??F) 06/11/2024 11:[address] Respiratory Rate 16 06/11/2024 11:02 AM EST Oxygen Saturation 98% 06/11/2024 11:02 AM EST Inhaled Oxygen Concentration - - Weight 74.8 kg (165 lb) 06/11/2024 11:02 AM EST Height 167.6 cm (5' 6 ) 06/11/2024 11:02 AM EST Body Mass Index 26.63 06/11/2024 11:02 AM EST Plan of Treatment Upcoming Encounters Date Type Department Care Team (Late st Contact Info) Description 07/30/2024 1:30 PM EDT Medication Management [facility] [address] [place] [address] 08/22/2024 1:00 PM EDT Medication Management [facility] [address] [place] [address] Daniela Chavez, PharmD [address] [place] [address] 11/12/2024 1:00 PM EDT Office Visit [facility] [address] [place] [address] Cheikh, Rosanna, OD [address] [place] [address] Health Maintenance Due Date Last Done Comments CT Colonography 1957 Colonoscopy 1957 Colorectal Cancer Screening 1957 FIT DNA/Cologuard 1957 FIT 1957 FOBT 1957 Sigmoidoscopy 1957 Eye Exam 08/18/1967 Pneumococcal Vaccine: 50+ Years (1 of 2 - PCV) 1976 Hepatitis B Vaccines (2 of 3 - 19+ 3-dose series) 07/18/2000 06/20/2000 DTaP/Tdap/Td Vaccines (1 - Tdap) 11/17/2000 11/16/2000 Zoster Vaccines (1 of 2) 08/18/2007 RSV Patients and Patients Aged 60 years or older (1 - Risk 60-74 years 1-dose series) 2017 COVID-19 Vaccine ( season) 2023 09/28/2020, 08/31/2020 Influenza Vaccine (#1) 2023 Depression Screening 07/09/2024 07/10/2023, 07/10/19 Diabetes: Urine Protein Screening 07/17/2024 07/18/2023 Lipid Panel 07/17/2024 07/18/2023, 06/09, 05/21/2021, Additional history exists Diabetes: Hemoglobin A1C 09/11/2024 025, 11/08/2023, 07/10/2023, Additional history exists SDOH Screening 05/30/2025 05/30/2024 Tobacco Screening 06/11/2025 06/11/2024 Diabetes: Foot Exam 06/12/2025 06/12/2024, 01/09/2023, 01/09/2023 Alcohol/Substance Use Screening 06/14/2025 06/14/2024 Hepatitis C Screening Completed 07/18/2023 HIB Vaccines Aged Out No longer eligi ble based on patient's age to complete this topic HPV Vaccines Aged Out No longer eligi ble based on patient's age to complete this topic Hepatitis A Vaccines Aged Out No long er eligible based on patient's age to complete this topic IPV Vaccines Aged Out No longer eligi ble based on patient's age to complete this topic Meningococcal Vaccine Aged Out No ingrid donavan eligible based on patient's age to complete this topic RSV under 20 months Aged Out No longe r eligible based on patient's age to complete this topic Rotavirus Vaccines Aged Out No longer eligible based on patient's age to complete this topic Goals Goal Patient Goal Type Associated Problems Recent Progress Patient-Stated? Author Hemoglobin A1c < 7 Result Component 8.4( 11:02 AM EST) No Daniela Chavez, PharmLiya Record your blood sugar as directed Result Component No Daniela Chavez, PharmD Note: Use CGM, ensuring sensor is scanned at least once every 8 hours to capture 24H data. Check BG manually, as directed. Procedures Procedure Name Priority Date/Time Associated Diagnosis Comments POCT GLUCOSE Routine 06/11/2024 11:02 AM EST Type 2 diabetes mellitus with hyperglycemia, with long-term current use of insulin ([facility]) POCT GLYCATED HEMOGLOBIN, TOTAL Routine 06/11/2024 11:02 AM EST Type 2 diabetes mellitus with hyperglycemia, with long-term current use of insulin ([facility]) HEPATITIS C ANTIBODY Routine 07/18/2023 11:18 AM EDT Diabetes mellitus due to underlying condition with diabetic autonomic neuropathy, with long-term current use of insulin ([facility]) LIPID PANEL, STANDARD Routine 07/18/2023 11:18 AM EDT Diabetes mellitus due to underlying condition with diabetic autonomic neuropathy, with long-term current use of insulin ([facility]) ALBUMIN, RANDOM URINE W/CREATININE Routine 07/18/2023 11:12 AM EDT Diabetes mellitus due to underlying condition with diabetic autonomic neuropathy, with long-term current use of insulin ([facility]) from Last 3 Months or Most Recently Relevant to Health Maintenance Results * (ABNORMAL) POCT HGB A1C (06/11/2024 11:02 AM EST) Hemoglobin A1C 8.4(A) 4.0 - 6.0 % QC Media Lot # [id number] Lot# Expiration Date Blood 06/11/2024 11:0 2 AM EST Amada Hwang MD POINT OF CARE TEST ENTER/EDIT ORDERABLES Final Result * (ABNORMAL) POCT Glucose (06/11/2024 11:02 AM EST) Glucose Blood, POC 312(A) 60 - 200 mg/dL Blood Capillary blood specimen / Unknown 06/11/2024 11:02 AM EST us Amada Hwang MD POINT OF CARE TEST ENTER/EDIT ORDERABLES Final Result * Hepatitis C Ab (07/18/2023 11:18 AM EDT) Hepatitis C Antibody Nonreactive Nonreactive [facility] Comment:Antibodies to HCV no t detected; does not exclude early acuteHCV infection. Blood Venous blood specimen / Unknown 07/18/2023 11:18 AM EDT 07/18/2023 1:12 PM EDT us Amada Hawng MD LAB BLOOD ORDERABLES Final Res ult Performing Organization Address [facility] de Phone Number [facility] [address] [place] [address] [phone] Lipid Panel, Standard (07/18/2023 11:18 AM EDT) Triglycerides 96 <150 mg/dL [facility] Comment:Desirable Triglyceri de: less than 150 mg/dLBorderline High Triglyceride 150-199 mg/dLHigh Triglyceride: 200-499 mg/dLVery High Triglyceride: greater than or equal to 5OO mg/dL Cholesterol 106 <200 mg/dL [facility] Comment:Desirable Cholestero l: less than 200 mg/dLBorderline High Cholesterol: 200-239 mg/dLHigh Cholesterol: greater than 239 mg/dL LDL Cholesterol Calculated 41 <100 mg/dL [facility] Comment:Desirable LDL: less than 100 mg/dLNear Optimal/Above Optimal LDL: 110- 129 mg/dLBorderline High LDL: 130-159 mg/dLHigh LDL: 160-189 mg/dLVery High LDL: greater than or equal to 190 mg/dL HDL Cholesterol 46 >40 mg/dL [facility] Comment:Desirable HDL: great er than 40 mg/dL Note: This HDL assay may give artificially low results in patients with liver disease. Blood Venous blood specimen / Unknown 07/18/2023 11:18 AM EDT 07/18/2023 1:12 PM EDT us Amada Hwang MD LAB BLOOD ORDERABLES Final Res ult Performing Organization Address [facility] Co de Phone Number [facility] [address] [place] [address] [phone] Albumin, Random Urine W/Creatinine (07/18/2023 11:12 AM EDT) Creatinine, Urine 129.49 mg/dL [facility] Microalbumin Urine 10.0 mg/L [facility] Microalbum Creatinine Ratio Ur 7.7 <30 ug/mg cr [facility] Comment:Albumin/Creatinine R atio Reference Ranges: Normal: < 30 ug/mg creatinine Microalbuminuria: 30 - 300 ug/mg creatinineClinical Albuminuria: > 300 ug/mg creatinine Urine (Urine, Random) 07/18/2023 11:12 AM EDT 07/18/2023 1:13 PM EDT us Amada Hwang MD LAB URINE ORDERABLES Final Res ult [facility] [address] [place] [address] [phone] from Last 3 Months or Most Recently Relevant to Health Maintenance Insurance STANDARD MEDICARE Care Teams Jewel Bearing Driller Relationship Specialty Start Date End Date Amada Hwang MD [address] [place] [address] PCP - General Family Medicine 06/09/22 Daniela Chavez PharmD [address] [place] [phone] Pharmacist Internal Medicine 08/03/23
--- OUTSIDE RECORDS SUMMARY | 2024-07-30 10:40 | XMS_ITS | Encounter Summary ---
Author Organization [employer] Address [address] [facility] [address] [place] [address] Care Team Providers Care Barrel Loader And Cleaner Name Role Phone Amada Hwang MD Primary Care Provider [phone] Daniela Chavez PharmD Unavailable [phone] Reason for Visit * Reason Comments Med Refill Encounter Details Date Type Department Care Team (Late st Contact Info) Description 01/08/2024 Refill [facility] [address] [place], [place] [phone] Amada Hwang MD [address] [place], [place] [phone] Type 2 diabetes mellitus with hyperglycemia, with long-term current use of insulin ([facility]) Social History Tobacco Use Types Packs/Day Years [...] Description 07/30/2024 1:30 PM EDT Medication Management [facility] [address] [place] [address] 08/22/2024 1:00 PM EDT Medication Management [facility] [address] [place] [address] Daniela Chavez PharmD [address] [place] [address] 11/12/2024 1:00 PM EDT Office Visit [facility] [address] [place] [address] Cheikh, Rosanna, OD [address] [place] [address] documented as of this encounter Goals Goal [...] hyperglycemia, with long-term current use of insulin ([facility]) documented in this encounter Additional Health Concerns Assessment Noted Time PHQ-9 Depression Total Score: 0 07/10/19 24 11:10 AM EDT documented as of this encounter Care Teams Barrel Loader And Cleaner Relationship Specialty Start Date End Date Amada Hwang MD [address] [place] [address] PCP - General Family Medicine 06/09/22 Daniela Chavez PharmD [address] [place] [address] Pharmacist Internal Medicine 08/03/23 documented as of this encounter
--- OUTSIDE RECORDS SUMMARY | 2024-07-30 10:40 | XMS_ITS | Encounter Summary ---
Author Organization [employer] Address [address] [facility] 7[address] [place] [address] Care Team Providers Care Ship Construction Teacher Name Role Phone Amada Hwang MD Primary Care Provider [phone] Daniela Chavez PharmD Unavailable [phone] Reason for Visit * Reason Comments Med Change Request Encounter Details Date Type Department Care Team ([facility] st Contact Info) Description 09/01/2023 Refill [facility] [address] [place], [place] [phone] Amada Hwang MD [address] [place], [place] [phone] Type 2 diabetes mellitus with hyperglycemia, with long-term current use of insulin ([facility]) Social History Tobacco Use Types Packs/Day [...] EDT Medication Management [facility] [address] [place] [address] 08/22/2024 1:00 PM EDT Medication Management [facility] [address] [place] [address] Daniela Chavez PharmD [address] [place] [address] 11/12/2024 1:00 PM EDT Office Visit [facility] [address] [place] [address] Cheikh, Rosanna, OD [address] [place] [address] documented as of this encounter Goals Goal [...] hyperglycemia, with long-term current use of insulin ([facility]) documented in this encounter Additional Health Concerns Assessment Noted Time PHQ-9 Depression Total Score: 0 07/10/19 24 11:10 AM EDT documented as of this encounter Care Teams Ship Construction Teacher Relationship Specialty Start Date End Date Amada Hwang MD [address] [place] [address] PCP - General Family Medicine 06/09/22 Daniela Chavez PharmD [address] [place] [address] Pharmacist Internal Medicine 08/03/23 documented as of this encounter
--- OUTSIDE RECORDS SUMMARY | 2024-07-30 10:40 | XMS_ITS | Encounter Summary ---
Author Organization [employer] Address [address] [facility] [address] [place] [address] Care Team Providers Care Bright Cutter Name Role Phone Amada Hwang MD Primary Care Provider [phone] Daniela Chavez PharmD Unavailable [phone] Reason for Visit * Reason Comments Med Refill Encounter Details Date Type Department Care Team (Late st Contact Info) Description 05/21/[address] [facility] [address] [place], [place] [phone] [facility] [address] [place], [place] [phone] Type 2 diabetes mellitus with hyperglycemia, with long-term current use of insulin ([facility]) Social History Tobacco Use Types [...] Medication Management [facility] [address] [place] [address] 08/22/2024 1:00 PM EDT Medication Management [facility] [address] [place] [address] Daniela Chavez PharmD [address] [place] [address] 11/12/2024 1:00 PM EDT Office Visit [facility] [address] [place] [address] Cheikh, Rosanna, OD [address] [place] [address] documented as of this encounter Goals Goal [...] hyperglycemia, with long-term current use of insulin ([facility]) documented in this encounter Additional Health Concerns Assessment Noted Time PHQ-9 Depression Total Score: 0 07/10/19 24 11:10 AM EDT documented as of this encounter Care Teams Bright Cutter Relationship Specialty Start Date End Date Amada Hwang MD [address] [place] [address] PCP - General Family Medicine 06/09/22 Daniela Chavez PharmD [address] [place] [address] Pharmacist Internal Medicine 08/03/23 documented as of this encounter
[2024-07-30 12:06] LABS: Alanine Aminotransferase 19 U/L (0-40); Albumin Level 4.4 g/dL (3.5-5.0); Alkaline Phosphatase 79 U/L (39-117); Anion Gap 12 (12-20); Aspartate Amino Transferase 20 U/L (5-37); Bilirubin Direct 0.2 mg/dL (0.0-0.5); Bilirubin Total 0.6 mg/dL (0.0-1.0); Blood Urea Nitrogen 29 mg/dL (9-16); Calcium 9.4 mg/dL (8.4-10.2); Carbon Dioxide 29 mmol/L (22-29); Chloride 103 mmol/L (96-108); Cholesterol 113 mg/dL (<200); Estimated Glomerular Filt Rate > 60; Glucose Random 178 mg/dL (60-115); HDL Cholesterol 53 mg/dL (>40); LDL Cholesterol Calculated 51 mg/dL (<100); Potassium 4.1 mmol/L (3.3-5.1); Sodium 140 mmol/L (135-145); Total Protein 7.3 g/dL (6.5-8.0); Triglycerides 49 mg/dL (<150)
[2024-07-30 12:21] LABS: Vitamin B12 434 pg/mL (200-900)
== END 2024-07-30 09:36 | disposition home or self-care (01) ==
LOC: HO.HHCL 09:35
PROVIDERS: Visit Provider General Practice
DX: E11.65 Type 2 diabetes mellitus with hyperglycemia (principal); Z79.4 Long term (current) use of insulin
CPT/HCPCS: 36415; 80048; 80061; 80076; 82607